=== PATIENT | female | born 1965 ===

== ENCOUNTER 2018-11-06 08:28 | Day surgery (SDC) | payer OTHER ==
[~2018-11-06 08:28] MED LIST: ATACAND4 MG; ATENOLOL50 MG; CATAFLAM50 MG PO; ORPH100T PO
== END 2018-11-06 16:30 | disposition home or self-care (01) ==
LOC: CIR.AMB 08:28
DX: N20.1 Calculus of ureter (principal); N13.5 Crossing vessel and stricture of ureter without hydronephrosis

== ENCOUNTER 2020-12-15 07:52 | Outpatient (CLI) | payer OTHER | END 2020-12-15 08:00 | disposition home or self-care (01) | LOC: MRI 07:52 | PROVIDERS: ATTEND Urology | DX: N20.0 Calculus of kidney (principal); N13.1 Hydronephrosis with ureteral stricture, not elsewhere classified; N20.1 Calculus of ureter | CPT/HCPCS: 72195; 74181 ==

== ENCOUNTER 2021-07-03 07:45 | Inpatient (IN) | payer OTHER ==
[~2021-07-03] VITALS: Ht 154.9 cm; Wt 70.8 kg
[2021-07-06] MEDS ORDERED: CLONAZEPAM0.5 MG (07:56)
[2021-07-06] MEDS ORDERED: LATANOPROST2.5 ML (07:57)
== END 2021-07-08 17:29 | disposition home or self-care (01) | DRG 660 ==
LOC: O/R 07-06 06:00 → SURG 07-06 07:00 → SURH 07-06 13:46
PROVIDERS: ADMIT Urology; ATTEND Urology
PROC: 0TT14ZZ Resection of Left Kidney, Percutaneous Endoscopic Approach (ICD-10-PCS; principal; 2021-07-06 07:00)
DX: N13.1 Hydronephrosis with ureteral stricture, not elsewhere classified (principal); N20.1 Calculus of ureter; I12.9 Hypertensive chronic kidney disease with stage 1 through stage 4 chronic kidney disease, or unspecified chronic kidney disease; N18.9 Chronic kidney disease, unspecified